=== PATIENT | female | born 1995 | race Caucasian/White ===

== ENCOUNTER 2016-12-21 20:41 | Emergency (ER) | payer BC, OTHER ==
[2016-12-21 21:17] VITALS: BP 132/68
--- NOTE | 2016-12-21 23:20 | UC ---
Du Tyler Erika, scribed for Tamara Krause MD on 12/21/16 at 2213 . Lower Extremity/Ankle HPI - HPI Summary HPI Summary: Patient is a 21-year-old female presenting to [facility] with a CC of intermittent posterior left leg pain for the past week and a half. Patient reports that on , she worked out at the gym, which she had not done in a while. She then developed the pain, described as an aching, and rated a 4/10 currently. The pain is located at the posterior knee and thigh. Patient took Advil, and is unsure if it helped the pain or not. 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 Pain is worse when sitting down, and is improved by walking around. She does note some chest pain, but states it is secondary to anxiety. Patient stopped taking oral contraceptives 1 month ago. Pt does not smoke. LNMP today. Patient reports her mother from a DVT that became a PE at age 48. - History of Current Complaint Chief Complaint: UCLowerExtremity Stated Complaint: PAIN IN LEG Time Seen by Provider: 12/21/16 21:58 Hx Obtained From: Patient, Family/Director Of Land - Boyfriend Hx Last Menstrual Period: December ?: No Onset/Duration: Gradual Onset, Lasting Weeks - 1.5 weeks, Still Present Severity Currently: Moderate Pain Intensity: 4 Pain Scale Used: 0-10 Numeric Aggravating Factor(s): Other - sitting Alleviating Factor(s): Other - ambulation Able to Bear Weight: Yes - Allergies/Home Medications Allergies/Adverse Reactions: Allergies Allergy/AdvReac Type Severity Reaction Status Date / Time No Known Allergies Allergy Verified 06/21/13 15:42 Home Medications: Home Medications Ibuprofen [Advil] 12/21/16 [History] PMH/Surg Hx/FS Hx/Imm Hx Previously Healthy: Yes Endocrine History Of: Denies: Diabetes, Thyroid Disease Cardiovascular History Of: Denies: Cardiac Disorders, Hypertension Respiratory History Of: Denies: COPD, Asthma GI/ History Of: Denies: Ulcer - Surgical History Surgical History: None - Family History Known Family History: Positive: Other - PE mother- with it - Social History Alcohol Use: Weekly Substance Use Type: None Smoking Status (MU): Never Smoked Tobacco - Immunization History Vaccination Up to Date: Yes Review of Systems Constitutional: Negative Skin: Negative Eyes: Negative ENT: Negative Respiratory: Negative Cardiovascular: Negative Gastrointestinal: Negative Genitourinary: Negative Motor: Negative Neurovascular: Negative Musculoskeletal: Other: - posterior LLE pain Neurological: Negative Psychological: Anxious - with some chest pain All Other Systems Reviewed And Are Negative: Yes Physical Exam Triage Information Reviewed: Yes Appearance: Well-Appearing, Well-Nourished, Pain Distress Vital Signs: Initial Vital Signs Temp 98.2 F 12/21/16 21:09 Pulse 108 12/21/16 21:09 Resp 16 12/21/16 21:09 BP 132/68 12/21/16 21:09 Pulse Ox 100 12/21/16 21:09 Vital Signs Reviewed: Yes Eyes: Positive: Conjunctiva Clear ENT: Positive: Normal ENT inspection Neck: Positive: Supple Respiratory: Positive: Lungs clear, Normal breath sounds, No respiratory distress Cardiovascular: Positive: No Murmur, Pulses Normal, Brisk Capillary Refill, Tachycardia - at 108 bpm on triage Musculoskeletal: Positive: Strength Intact, ROM Intact, Other: - tender left post knee and left post thigh, no cord palpable, no mass, no calf tenderness Neurological: Positive: Alert, Muscle Tone Normal Psychological Exam: Normal Skin Exam: Normal Lower Extremity Course/Dx - Differential Dx/Diagnosis Differential Diagnosis/HQI/PQRI: Contusion, Fracture (Closed), Sprain, Strain, Other - DVT, Álvarez's cyst, muscle strain Provider Diagnoses: Left posterior leg pain - Physician Notifications Discussed Patient Care With: Dr. Yoo ([facility]) at 22:11 - accepts for transfer Discharge - Discharge Plan Condition: Stable Disposition: AGAINST MEDICAL ADVICE Discharge Disposition Comment: By private car to the [facility] Forms: *Work Release Referrals: Nydia Nagy MD [Primary Care Provider] - The documentation as recorded by the Du valentino Erika accurately reflects the service I personally performed and the decisions made by , Tamara Krause MD.
== END 2016-12-21 22:24 | disposition left against medical advice (07) ==
LOC: UCEAST 20:41
DX: M79.605 Pain in left leg (principal); F41.9 Anxiety disorder, unspecified; Z83.2 Family history of diseases of the blood and blood-forming organs and certain disorders involving the immune mechanism
CPT/HCPCS: 99212; G0463

== ENCOUNTER 2016-12-21 22:37 | Emergency (ER) | payer BC ==
--- NOTE | 2016-12-22 00:41 | ED ---
Lower Extremity - HPI Summary HPI Summary: 21 female presents sent over for [facility] with complaints of left LE pain that began approximately 1 week ago. Patient was sent here to rule out DVT. Patient describes the pain to be a dull ache that is in the posterior proximal left LE and behind her left knee. She states rest makes the pain worse and walking makes it better. When she is sitting at work or in the car the pain seems to increase. Has not tried taking anything for the pain. Denies numbness/ tingling, strength and sensation loss. Denies findings of swelling, redness, bruising and fever/chills. 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 Denies SOB, difficulty breathing and chest pain. PMHx significant for anxiety. - History of Current Complaint Chief Complaint: EDExtremityLower Stated Complaint: XFER FROM EAST/POS LEFT LEG BLOOD CLOT Time Seen by Provider: 12/21/16 23:25 Hx Obtained From: Patient Hx Last Menstrual Period: December Mechanism Of Injury: Unknown Onset/Duration: Still Present Severity Initially: Mild Severity Currently: Mild Pain Intensity: 4 Pain Scale Used: 0-10 Numeric Timing: Intermittent Character Of Pain: Dull, Aching Associated Signs And Symptoms: Positive: Knee Pain Aggravating Factor(s): Other - rest Alleviating Factor(s): Other - walking Able to Bear Weight: Yes - Risk Factors DVT Risk Factors: Negative - Allergies/Home Medications Allergies/Adverse Reactions: Allergies Allergy/AdvReac Type Severity Reaction Status Date / Time No Known Allergies Allergy Verified 06/21/13 15:42 PMH/Surg Hx/FS Hx/Imm Hx Endocrine/Hematology History: Denies: Hx Diabetes, Hx Thyroid Disease Cardiovascular History: Denies: Hx Hypertension Respiratory History: Denies: Hx Asthma, Hx Chronic Obstructive Pulmonary Disease (COPD) GI History: Denies: Hx Ulcer Psychiatric History: Reports: Hx Anxiety - Surgical History Surgery Procedure, Year, and Place: none Infectious Disease History: No Infectious Disease History: Denies: Hx Hepatitis, Hx Human Immunodeficiency Virus (HIV), Traveled Outside the US in Last 30 Days - Family History Known Family History: Positive: None - Social History Alcohol Use: Weekly Alcohol Amount: 2-3 drinks weekly Substance Use Type: Reports: None Smoking Status (MU): Never Smoked Tobacco Review of Systems Constitutional: Negative Eyes: Negative ENT: Negative Cardiovascular: Negative Respiratory: Negative Gastrointestinal: Negative Genitourinary: Negative Positive: Arthralgia, Myalgia - left LE Skin: Negative Neurological: Negative Psychological: Normal All Other Systems Reviewed And Are Negative: Yes Physical Exam Triage Information Reviewed: Yes Vital Signs On Initial Exam: Initial Vitals Temp Pulse Resp BP Pulse Ox 98.8 F 83 18 147/85 100 12/21/16 22:46 12/21/16 22:46 12/21/16 22:46 12/21/16 22:46 12/21/16 22:46 BP elevated was re-checked and in a normal range. She is in pain and anxious. Vital Signs Reviewed: Yes Appearance: Positive: Well-Appearing, No Pain Distress, Well-Nourished Skin: Positive: Warm, Skin Color Reflects Adequate Perfusion - < 2 second cap refill, Dry Head/Face: Positive: Normal Head/Face Inspection Eyes: Positive: Conjunctiva Clear ENT: Positive: Normal ENT inspection, Hearing grossly normal Neck: Positive: Supple, Nontender Respiratory/Lung Sounds: Positive: Clear to Auscultation, Breath Sounds Present Cardiovascular: Positive: Normal, RRR, Pulses are Symmetrical in both Upper and Lower Extremities - 2+ pedal pulses bilateral Abdomen Description: Positive: Nontender, No Organomegaly, Soft Bowel Sounds: Positive: Present Musculoskeletal: Positive: Normal, Strength/ROM Intact - sensation and skin intact. no signs of obvious deformity, ecchymosis, erythema, edema, goode cyst, warmth, crepitus and step off. able to move entire LE normal strength and ROM, Pain @ - with palpation behind left knee and posterior proximal LE at the area of hamstring. very minimal pain on palpation. Negative: Limited @, Interruption @, Aylin Sign Left, Aylin Sign Right, Edema Left, Edema Right Neurological: Positive: Normal, Sensory/Motor Intact, Alert, Oriented to Person Place, Time, CN Intact II-III, Reflexes Intact, NV Bundle Intact Distally, Normal Gait Psychiatric: Positive: Normal, Affect/Mood Appropriate, Anxious - Macario Coma Scale Coma Scale Total: 15 Diagnostics - Vital Signs Vital Signs Temp Pulse Resp BP Pulse Ox 12/21/16 22:46 98.8 F 83 18 147/85 100 - Laboratory Lab Statement: Any lab studies that have been ordered have been reviewed, and results considered in the medical decision making process. - Radiology left knee Xray Interpretation: No Acute Changes Radiology Interpretation Completed By: ED Physician - Ultrasound No standard instances Ultrasound Interpretation: No Acute Changes - NO DVT. Negative examination Ultrasound Interpretation Completed By: Radiologist Lower Extremity Course/Dx - Course Course Of Treatment: U/S and X-ray obtained. both were unremarkable. patient was given naproxen for pain. encouraged to take at home for the next 5 days consistently while symptoms persist to see if it helps. appears to be muscular at this time. REST. follow up with PCP. - Diagnoses Differential Diagnosis/HQI/PQRI: Positive: Arthritis, Bursitis, Contusion, Dislocation, DVT, Fracture (Closed), Sprain, Strain, Other Provider Diagnoses: Lower extremity pain, posterior, Muscle strain Discharge - Discharge Plan Condition: Stable Disposition: HOME Patient Education Materials: Knee Pain (ED) Referrals: Nydia Nagy MD [Primary Care Provider] - Additional Instructions: Try taking OTC Aleve or Motrin for the next 5 days to see if symptoms subside. Try using heat or ice. Rest your leg and refrain from intense physical activity for the next 5-7 days. You could be experiencing muscle cramps from long periods of sitting, try exercising and moving your leg throughout work or long periods of sitting/laying. If symptoms worsen or persist please follow up with your primary care provider for further workup.
[2016-12-22] MEDS ORDERED: Naproxen TAB* 250 MG PO ONE (00:44)
[2016-12-22 01:14] VITALS: BP 119/69
--- NOTE | 2016-12-22 07:31 | RAD ---
HISTORY: Pain, left lower leg pain COMPARISONS: None VIEWS: 2, Frontal and lateral views of the left knee FINDINGS: BONE DENSITY: Normal. BONES: There is no displaced fracture. JOINTS: There is no arthropathy. There is no suprapatellar joint effusion or lipohemarthrosis. ALIGNMENT: There is no dislocation. SOFT TISSUES: Unremarkable. OTHER FINDINGS: None. IMPRESSION: NO ACUTE OSSEOUS INJURY. IF SYMPTOMS PERSIST, RECOMMEND REPEAT IMAGING.
--- NOTE | 2016-12-22 08:20 | RAD ---
HISTORY: Left leg pain COMPARISONS: None relevant TECHNIQUE: Multiple transverse and longitudinal ultrasound images were obtained of the left lower extremity from the level of the common femoral vein inferiorly through to the infrapopliteal veins using grayscale, color Doppler, and spectral Doppler imaging with and without compression and with augmentation. Comparison images were obtained of the contralateral common femoral vein. FINDINGS: VEINS: The venous system of the left lower extremity is compressible throughout its course, with normal flow on color Doppler imaging and normal response to augmentation on spectral Doppler imaging. SOFT TISSUES: Unremarkable. OTHER FINDINGS: None. IMPRESSION: NO LEFT LOWER EXTREMITY DEEP VEIN THROMBOSIS
== END 2016-12-22 01:13 | disposition home or self-care (01) ==
LOC: ED 22:37
DX: S86.112A Strain of other muscle(s) and tendon(s) of posterior muscle group at lower leg level, left leg, initial encounter (principal); M25.562 Pain in left knee; X58.XXXA Exposure to other specified factors, initial encounter; Y93.9 Activity, unspecified; Y92.9 Unspecified place or not applicable
CPT/HCPCS: 99282; A9270-GY

== ENCOUNTER 2017-10-20 09:54 | Emergency (ER) | payer BC ==
[2017-10-20 12:54] LABS: Hematocrit 38 % (35-47); Hemoglobin 13.2 g/dl (12.0-16.0); Mean Corpuscular HGB Conc 35 g/dl (31-36); Mean Corpuscular Hemoglobin 31 pg (27-31); Mean Corpuscular Volume 90 fL (80-97); Mean Platelet Volume 7 um3 (7.4-10.4); Platelet Count 287 10^3/ul (150-450); Red Blood Count 4.21 10^6/ul (4.0-5.4); Red Cell Distribution Width 13 % (10.5-15); White Blood Count 10.6 10^3/ul (3.5-10.8)
[2017-10-20 13:10] LABS: EGFR Non-African American 144.2 (>60)
[2017-10-20 13:15] LABS: Urine Color Yellow
[2017-10-20 13:16] LABS: Urine Appearance Clear
[2017-10-20 13:17] LABS: Urine Specific Gravity 1.015 (1.010-1.030); Urine Urobilinogen Negative (Negative)
[2017-10-20 13:18] LABS: Urine Blood 1+ (Negative); Urine Ketones 2+ (Negative); Urine Protein 1+(30 mg/dL) (Negative)
--- NOTE | 2017-10-20 15:50 | RAD ---
Indication: Vaginal spotting; approximate 9 weeks . Comparison: No relevant prior exams available on the [facility] PACS for comparison. Technique: Transabdominal obstetrical ultrasound. Report: Single intrauterine gestational sac with solitary 2.43 cm pole crown-rump length corresponding to 9 weeks 2 days gestation. No perigestational hemorrhage evident. Unremarkable 0.4 cm yolk sac. cardiac activity and movement visualized with cardiac activity measuring 163 bpm period The maternal ovaries could not be visualized. No adnexal region mass is evident. IMPRESSION: Viable-appearing single intrauterine gestation with estimated gestational age of 9 weeks 2 days based on crown-rump length. AUA MATT May 24, 2018.
[2017-10-20] MEDS ORDERED: Nitrofurantoin Macrocrystals* 100 MG CAP PO ONE (16:09)
[2017-10-20 16:55] VITALS: BP 116/81
--- NOTE | 2017-10-23 16:06 | ED ---
Solo Tyler Gabriel, scribed for Juan C Thompson MD on 10/20/17 at 1247 . - HPI Summary HPI Summary: This patient is a 22 year old F presenting to [facility] accompanied by her boyfriend with a chief complaint of vaginal bleeding since 0800 today. Patient reports ABD cramping and increased urinary frequency. Patient denies dysuria. Patient states the blood was bright red and it is brownish. She states the amount of blood would not fill a pad. Patient estimates she is 9 weeks , . Previous was born at 38 weeks and did not have fully developed lungs so it . No miscarriages. She had a US at 6weeks that showed nothing abnormal. - History of Current Complaint Chief Complaint: EDOBProblems Stated Complaint: 9 WKS /VAGINAL BLEEDING Time Seen by Provider: 10/20/17 12:23 Hx Obtained From: Patient Chief Complaint: Concern for Demise Onset/Duration: Started Hours Ago - 4, Still Present Timing: Constant Severity: Mild Current Severity: Mild Pain Intensity: 0 Location of Pain: None Character: None Associated Signs and Symptoms: Positive: Vaginal Bleeding or Discharge - bleeding, Other: - ABD cramping, increased urinary frequency, - Assessment Hx Now: No Hx Hysterectomy: No - Allergies/Home Medications Allergies/Adverse Reactions: Allergies Allergy/AdvReac Type Severity Reaction Status Date / Time No Known Allergies Allergy Verified 06/21/13 15:42 PMH/Surg Hx/FS Hx/Imm Hx Endocrine/Hematology History: Denies: Hx Diabetes, Hx Thyroid Disease Cardiovascular History: Denies: Hx Hypertension Respiratory History: Denies: Hx Asthma, Hx Chronic Obstructive Pulmonary Disease (COPD) GI History: Denies: Hx Ulcer Psychiatric History: Reports: Hx Anxiety - Surgical History Surgery Procedure, Year, and Place: none - Immunization History Date of Tetanus Vaccine: UTD Infectious Disease History: No Infectious Disease History: Denies: Hx Hepatitis, Hx Human Immunodeficiency Virus (HIV), Traveled Outside the [place] in Last 30 Days - Family History Known Family History: Negative: Seizure Disorder, Blood Disorder - Social History Occupation: Employed Full-time Alcohol Use: Weekly Alcohol Amount: states does not drink currently Substance Use Type: Reports: None Smoking Status (MU): Never Smoked Tobacco Review of Systems Negative: Fever, Chills Negative: Erythema Negative: Sore Throat Negative: Chest Pain Negative: Shortness Of Breath, Cough Positive: Abdominal Pain - ABD cramping . Negative: Vomiting, Nausea Positive: frequency, other - vaginal bleeding . Negative: dysuria, hematuria Negative: Myalgia, Edema Negative: Rash Neurological: Negative - dizziness All Other Systems Reviewed And Are Negative: Yes Physical Exam - Summary Physical Exam Summary: Constitutional: Well-developed, Well-nourished, Alert. (-) Distressed Skin: Warm, Dry HENT: Normocephalic; Atraumatic Eyes: Conjunctiva normal Neck: Musculoskeletal ROM normal neck. (-) JVD, (-) Stridor, (-) Tracheal deviation Cardio: Rhythm regular, rate normal, Heart sounds normal; Intact distal pulses; The pedal pulses are 2+ and symmetric. Radial pulses are 2+ and symmetric. (-) Murmur Pulmonary/Chest wall: Effort normal. (-) Respiratory distress, (-) Wheezes, (-) Rales Abd: Soft, (-) Tenderness, (-) Distension, (-) Guarding, (-) Rebound Musculoskeletal: (-) Edema Lymph: (-) Cervical adenopathy Neuro: Alert, Oriented x3 Psych: Mood and affect Normal - Physical Exam Triage Information Reviewed: Yes Vital Signs Reviewed: Yes Diagnostics - Vital Signs Vital Signs Temp Pulse Resp BP Pulse Ox 10/20/17 10:25 98.3 F 69 16 119/65 99 - Laboratory Result Diagrams: 10/20/17 12:44 10/20/17 12:44 Lab Statement: Any lab studies that have been ordered have been reviewed, and results considered in the medical decision making process. - Additional Comments Diagnostic Additional Comments: US reveals, per radiologist, Viable-appearing single intrauterine gestation with estimated gestational age of 9 weeks 2 days based on crown-rump length. [facility] MATT May 24, 2018. ED physician has reviewed this radiology report. Course/Dx - Course Assessment/Plan: This patient is a 22 year old F presenting to [facility] accompanied by her boyfriend with a chief complaint of vaginal bleeding since 0800 today. Patient reports ABD cramping and increased urinary frequency. Patient denies dysuria. Patient states the blood was bright red and it is brownish. She states the amount of blood would not fill a pad. Patient estimates she is 9 weeks , . Previous was born at 38 weeks and did not have fully developed lungs so it . No miscarriages. She had a US at 6weeks that showed nothing abnormal. US reveals, per radiologist, Viable-appearing single intrauterine gestation with estimated gestational age. of 9 weeks 2 days based on crown-rump length. AUA MATT May 24, 2018. ED physician has reviewed this radiology report. Test results with no significant abnormalities. In the ED course the patient was given Macrodantin. Patient will be discharged with prescription for Macrobid and follow up from PCP. The patient is agreeable with this plan. - Diagnoses Provider Diagnoses: UTI (urinary tract infection), Threatened Discharge - Discharge Plan Condition: Stable Disposition: HOME Prescriptions: Nitrofurantoin Monohyd Macro [Macrobid] 100 mg PO BID #14 cap Referrals: Nydia Nagy MD [Primary Care Provider] - The documentation as recorded by the Solo valentino Gabriel accurately reflects the service I personally performed and the decisions made by , Juan C Thompson MD.
== END 2017-10-20 16:54 | disposition home or self-care (01) ==
LOC: ED 09:54
DX: O20.0 Threatened abortion (principal); Z3A.09 9 weeks gestation of pregnancy; R10.9 Unspecified abdominal pain; N39.0 Urinary tract infection, site not specified
CPT/HCPCS: 36415; 76801; 80053; 81003; 81015; 84702; 85027; 87086; 99283; A9270-GY

== ENCOUNTER 2018-05-03 11:38 | Inpatient (IN) | payer BC ==
[2018-05-03] MEDS ORDERED: Penicillin G Potassium IV* 5,000,000 UNITS in NS 0.9% 100 ML* 100 ML IVPB ONE (13:33)
[2018-05-03] MEDS ORDERED: Misoprostol TAB* 100 MCG PO ONE (13:33)
[2018-05-03] MEDS: Acetaminophen TAB* 325 MG PO PRN ×2 (13:47→20:50)
--- NOTE | 2018-05-03 15:33 | HP ---
General Information - Reason for Visit Pt sent from the office due to preeclampsia with severely elevated blood pressures. Planning induction of labor per Dr. Silverman. 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 Pertinent Past Medical History: Non-Contributory Pertinent Past Surgical History: See Records Pertinent Family History: Non-Contributory - Antepartal Records Antepartal Records: Reviewed, Complicated by: - Preeclampsia Review of Systems Constitutional: Comfortable CV Complaint: No Respiratory: Shortness of Breath: No Gastrointestinal: Nausea - last night - has often felt throughout Genitourinary: No Dysuria, No Bleeding, No Leaking Fluid Musculoskeletal: No Complaint - occ mild cramping, No Epigastric Pain Neurological: Headache - mild Movement: Normal Exam Allergies/Adverse Reactions: Allergies No Known Allergies Allergy (Verified 05/03/18 14:00) mildly elevated BPs - Measurements Height: 5 ft Weight: 195 lb Weight in lbs: [id number] Body Mass Index (BMI): 38.0 Pre- Weight: 165 lb Weight Gained This : 30 lbs and 0 ozs - Exam Breast: Breast Exam Deferred Extremities: No Edema Heart: Normal Rhythm/Heart Sounds HEENT: No Significant Findings Reflexes: DTR 2+ - Abdominal Exam Abdomen Exam: Non-Tender - Ultrasound/Biophysical Profile Ultrasound Status: Not Done Targeted Exam Findings Cervical Exam: 1cm Effacement: 50% Station: -1 Presenting Part: Vertex Membrane Status: Intact EFM Findings - External Monitor Findings Baseline Heart Rate: 135 External Monitor Findings: Accelerations Present, No Pattern of Variable or Late Decelerations, Variability Moderate, Baseline Stable Contractions: None Assessment/Plan - Assessment @36.5wks with preeclampsia with severe BPs at home and in the office several times over the past week. Headaches off and on. BPs here have been 120 -140s/80-90s. Therefore we will proceed with induction but not start magnesium sulfate. - Obstetrical Risk Factors Obstetrical Risk Factors: GBS Positive, PreEclampsia with Severe Features - Plan Plan: Induction, Antibiotic Prophylaxis, Admit - Anticipate Vaginal Delivery
[2018-05-03 17:13] LABS: ABS Basophils 0 10^3/ul (0-0.2); ABS Eosinophils 0.1 10^3/ul (0-0.6); ABS Lymphocytes 3.3 10^3/ul (1.0-4.8); ABS Monocytes 0.7 10^3/ul (0-0.8); ABS Neutrophils 8.7 10^3/ul (1.5-7.7); ABS Nucleated RBC 0 10^3/ul; Eosinophil % 0.8 % (0-6); Hematocrit 34 % (35-47); Hemoglobin 11.3 g/dl (12.0-16.0); Lymphocyte % 25.6 % (25-47); Mean Corpuscular HGB Conc 33 g/dl (31-36); Mean Corpuscular Hemoglobin 30 pg (27-31); Mean Corpuscular Volume 90 fL (80-97); Mean Platelet Volume 8.7 um3 (7.4-10.4); Nucleated Red Blood Cells % 0; Platelet Count 226 10^3/ul (150-450); Red Blood Count 3.74 10^6/ul (4.00-5.40); Red Cell Distribution Width 15 % (10.5-15); White Blood Count 12.8 10^3/ul (3.5-10.8)
[2018-05-03] MEDS ORDERED: Oxytocin in LR* 20 UNITS/1,000 ML BAG IVPB ONE (19:34)
[2018-05-03] MEDS: Oxytocin in LR* 20 UNITS/1,000 ML BAG IVPB SCH (19:45)
[2018-05-04] MEDS ORDERED: Dinoprostone* 10 MG VAG.SUPP VAGINAL ONE (08:44)
[2018-05-04] MEDS ORDERED: Penicillin G Potassium IV* 2,500,000 UNITS in NS 0.9% 100 ML* 100 ML IVPB SCH (09:00)
--- NOTE | 2018-05-04 10:33 | PN ---
Medicine Progress Note - Date of Service Date of Service: 05/04/18 - Subjective Subjective: Patient is in bed, comfortable and has no complaints, had a headache earlier treated with tylenol and resolved, denies changes of vision, or abdominal pain. - Objective Objective: Current Medications Acetaminophen (Tylenol Tab*) 650 mg PO Q4H PRN PRN Reason: HEADACHE Last Admin: 05/03/18 20:50 Dose: 650 mg Lactated Ringer's (Lactated Ringers 1000 Ml Bag*) 1,000 mls @ 125 mls/hr IV PER RATE JESSICA Last Admin: 05/03/18 19:46 Dose: 125 mls/hr Penicillin G Potassium 2,500, (000 units/ Sodium Chloride) 100 mls @ 200 mls/ hr IVPB Q4H JESSICA Oxytocin (Pitocin In Lr*) 20 units in 1,000 mls @ 0 mls/hr IVPB .PER PARAMETERS JESSICA; Protocol Last Admin: 05/03/18 19:45 Dose: 3 mls/hr Intake & Output 05/02/18 05/03/18 05/04/18 05/05/18 06:59 06:59 06:59 06:59 Weight 195 lb Intake and Output Start: 05/03/18 11: 47 Freq: Status: Active Protocol: Created 05/03/18 11:47 System (Rec: 05/03/18 11:47 System [id number] ) General: Lungs:CTA b/l, no cva tenderness Cardiovascular: RRR Abdomen: Soft Nt, gravid Extremities: NT, reflexes +2 b/l Neuro: AAOx3 - Labs Labs: Laboratory Results - last 24 hr 05/03/18 05/03/18 16:58 16:58 WBC 12.8 H RBC 3.74 L Hgb 11.3 L Hct 34 L MCV 90 MCH 30 MCHC 33 RDW 15 Plt Count 226 MPV 8.7 Neut % (Auto) 67.9 Lymph % (Auto) 25.6 [place] % (Auto) 5.3 Eos % (Auto) 0.8 Baso % (Auto) 0.4 Absolute Neuts (auto) 8.7 H Absolute Lymphs (auto) 3.3 Absolute Monos (auto) 0.7 Absolute Eos (auto) 0.1 Absolute Basos (auto) 0 Absolute Nucleated RBC 0 Nucleated RBC % 0 Blood Type A Positive Antibody Screen Negative - Assessment Assessment: LUDIVINA ARANDA is a 22 year old Female. Patient's diagnosis is at 36 6/7 weeks with preeclampsia with maternal BP at home in office in severe range. Admitted on 05/03/18 for induction of labor, unripe cervix. She received cytotec 50MCG followed by pitocin x 24 hrs with no cervical change or contractions. Her Vitals are stable BP mostly wnl with several in 140/90 range c/w preeclampsia. Pitocin discontinued this am to avoid complications of bleeding at delivery due to prolonged pitocin use. Plan: patient and fetus are stable. Will give cervidil for cervical ripening in hopes to progress to inductiion/augmentation and achieve a vaginal delivery. Continue monitoring, will reserve BP treatment if BP are persistently systolic > 160 or diastolic >105. magnesium sulfate prophylaxis if s/sx of severe disease.
[2018-05-04] MEDS: Acetaminophen TAB* 325 MG PO PRN (17:40)
[2018-05-05] MEDS ORDERED: Oxytocin in LR* 20 UNITS/1,000 ML BAG IVPB SCH (09:00)
[2018-05-05] MEDS: Acetaminophen TAB* 325 MG PO PRN ×3 (09:50→23:12)
[2018-05-05] MEDS: Misoprostol TAB* 100 MCG PO SCH (21:17)
[2018-05-06] MEDS: Misoprostol TAB* 100 MCG PO SCH ×2 (01:21→05:17)
[2018-05-06] MEDS ORDERED: Penicillin G Potassium IV* 5,000,000 UNITS in NS 0.9% 100 ML* 100 ML IVPB ONE (12:57)
[2018-05-06] MEDS: Oxytocin in LR* 20 UNITS/1,000 ML BAG IVPB SCH (13:27)
[2018-05-06] MEDS ORDERED: OBEPIDURAL* 250 ML EPIDURAL ONE (16:40)
[2018-05-06] MEDS ORDERED: fentaNYL* 50 MCG/ML 2 ML VIAL (100 MCG VIAL) ONE (16:48)
[2018-05-06] MEDS ORDERED: Phenylephrine IV* 40 MCG/ML 10 ML SYRINGE IV PUSH PRN ×2 (17:25)
[2018-05-06] MEDS ORDERED: Famotidine TAB* 20 MG PO PRN (17:25)
[2018-05-06] MEDS ORDERED: Sodium Citrate/Citric Acid* 15 ML UDC PO PRN (17:25)
[2018-05-06] MEDS ORDERED: OBEPIDURAL* 250 ML EPIDURAL SCH (18:00)
[2018-05-06] MEDS ORDERED: Penicillin G Potassium IV* 2,500,000 UNITS in NS 0.9% 100 ML* 100 ML IVPB SCH (18:00)
[2018-05-06 18:10] LABS: Hematocrit 32 % (35-47); Hemoglobin 10.8 g/dl (12.0-16.0); Mean Corpuscular HGB Conc 34 g/dl (31-36); Mean Corpuscular Hemoglobin 31 pg (27-31); Mean Corpuscular Volume 90 fL (80-97); Mean Platelet Volume 8.6 um3 (7.4-10.4); Platelet Count 197 10^3/ul (150-450); Red Blood Count 3.53 10^6/ul (4.00-5.40); Red Cell Distribution Width 15 % (10.5-15); White Blood Count 9.4 10^3/ul (3.5-10.8)
[2018-05-06] MEDS ORDERED: Witch Hazel PAD* JAR TOPICAL PRN (18:27)
[2018-05-06] MEDS ORDERED: Dibucaine 1% 28.35 GM TUBE PR PRN (18:27)
[2018-05-06 18:29] LABS: EGFR Non-African American 104.6 (>60)
[2018-05-06] MEDS ORDERED: Oxytocin in LR* 20 UNITS/1,000 ML BAG IVPB SCH (19:00)
[2018-05-06] MEDS: Acetaminophen TAB* 325 MG PO PRN (19:45)
--- NOTE | 2018-05-06 20:15 | PROCNOTE ---
[facility] OB: Delivery Note - Delivery A Date of : 05/06/18 Time of : 18:14 [place] Sex: Male Weight at : 5 lb 10 oz Score 1 Minute: 8 Score 5 Minutes: 9 Gestational Age in Weeks and Days at Delivery: 37 Weeks and 1 Days Delivery Method: Spontaneous Vaginal Labor: Induced - for pre-eclampsia (mild) Did Patient attempt ?: N/A, No Previous Amniotic Fluid: Clear Estimated Blood Loss: 250 Anesthesia/Analgesia: CEI for Labor Delivered By: Ba You - Nursery Level of Nursery: Regular/Bedside - Perineum Perineal Injury: None/Intact Perineal Repair: None - Events Delivery Events of Note: Pitocin During Labor, Pitocin Only After Delivery, Full Course of Antibiotics - for GBS - Additional Delivery Notes Additional Delivery Notes: Pt admitted about 72 hrs before delivery for induction with mild pre-eclampsia. BPs remained in mild HTN range. No severe BPs, and labs were normal. Pt required many doses of misoprostol, cervidil, and pitocin with slow response. Pt reached 3-4cm/80% this AM. AROM performed and pitocin restarted. Pt received an epidural which worked well. A few hours later, she was fully dilated. She literally pushed for less than one minute to deliver the . Single nuchal cord present and reduced after delivery. Infant vigorous immediately. Placenta intact, appeared normal. Bleeding minimal.
[2018-05-06] MEDS ORDERED: Simethicone TAB* 80 MG TAB.CHEW PO SCH (21:00)
[2018-05-06] MEDS ORDERED: ceFAZolin 1 GM in Dextrose (*) 1 GM/50 ML BAG IVPB ONE (23:11)
--- NOTE | 2018-05-06 23:14 | PN ---
Progress Note - Progress Note Date of Service: 05/06/18 Note: Called by RN to see pt due to persistent gushes of blood since delivery. She has had excellent UOP. On exam, as expected, a large amount of organized clot found in the uterus. This was manually swept out, productive of about 600cc of clot. Pt tolerated this extremely well. Uterus was firm before and after. Will continue to watch closely. Ancef IV single dose ordered.
[2018-05-07] MEDS: Acetaminophen TAB* 325 MG PO PRN ×2 (00:23→16:59)
[2018-05-07] MEDS: Docusate CAP* 100 MG PO SCH ×3 (00:23→21:20)
[2018-05-07 07:03] LABS: ABS Basophils 0.1 10^3/ul (0-0.2); ABS Eosinophils 0.1 10^3/ul (0-0.6); ABS Monocytes 0.8 10^3/ul (0-0.8); ABS Neutrophils 7.5 10^3/ul (1.5-7.7); ABS Nucleated RBC 0 10^3/ul; Eosinophil % 0.7 % (0-6); Hematocrit 26 % (35-47); Lymphocyte % 32.3 % (25-47); Mean Corpuscular HGB Conc 34 g/dl (31-36); Mean Corpuscular Hemoglobin 31 pg (27-31); Mean Corpuscular Volume 90 fL (80-97); Mean Platelet Volume 8.9 um3 (7.4-10.4); Nucleated Red Blood Cells % 0.2; Platelet Count 193 10^3/ul (150-450); Red Blood Count 2.88 10^6/ul (4.00-5.40); Red Cell Distribution Width 15 % (10.5-15); White Blood Count 12.4 10^3/ul (3.5-10.8)
[2018-05-07] MEDS: Ferrous Gluconate TAB* 324 MG TAB PO SCH ×2 (09:05→21:20)
[2018-05-08] MEDS: Acetaminophen TAB* 325 MG PO PRN (00:57)
[2018-05-08 07:47] VITALS: BP 142/94
[2018-05-08] MEDS: Docusate CAP* 100 MG PO SCH (08:22)
[2018-05-08] MEDS: Ferrous Gluconate TAB* 324 MG TAB PO SCH (08:22)
== END 2018-05-08 16:36 | disposition home or self-care (01) | DRG 560 ==
LOC: MCHOBOUT 11:38 → MCHOB 12:06
PROVIDERS: ADMIT Obstetrics & Gynecology; ATTEND Obstetrics & Gynecology
PROC: 10E0XZZ Delivery of Products of Conception, External Approach (ICD-10-PCS; principal; 2018-05-06)
PROC: 3E033VJ Introduction of Other Hormone into Peripheral Vein, Percutaneous Approach (ICD-10-PCS; 2018-05-06)
PROC: 10907ZC Drainage of Amniotic Fluid, Therapeutic from Products of Conception, Via Natural or Artificial Opening (ICD-10-PCS; 2018-05-06)
DX: O14.14 Severe pre-eclampsia complicating childbirth (principal); O99.824 Streptococcus B carrier state complicating childbirth; O69.81X0 Labor and delivery complicated by cord around neck, without compression, not applicable or unspecified; O90.81 Anemia of the puerperium; D64.9 Anemia, unspecified; Z3A.37 37 weeks gestation of pregnancy; Z37.0 Single live birth
CPT/HCPCS: 36415; 80053; 84112; 85025; 85027; 86850; 86900; 86901; A9270-GY; J0690; J2540; J3010; S0191

== ENCOUNTER 2018-05-14 10:35 | Emergency (ER) | payer BC ==
--- NOTE | 2018-05-14 13:25 | ED ---
GI/ HPI - HPI Summary HPI Summary: Pt here w/ hemorrhoid x 5 days. This presented 3 days s/p vaginal delivery of her son. and delivery were uneventful (ie. no tearing). Pt reports her hemorrhoid is tender to touch, worse w/ wiping. Intermittent bleeding w/ wiping and some scant bleeding into pad. Has been using witch yolanda and prep H. No Sitz bath, NSAID's, stool softeners. Had a formed stool this morning that she reports was not painful until she had to wipe. No fatigue, lightheadedness, syncope, dizziness, CP, SOB. Has had anemia and is supposed to be taking Fe - hasn't started yet. Saw delivery recruiter today who per pt tried to "break up the clots" but was not successful so sent her here. No other health issues to report. - History of Current Complaint Chief Complaint: EDRectalPain Time Seen by Provider: 05/14/18 11:10 Stated Complaint: POSS HEMORRHOIDS Hx Obtained From: Patient, Family/Voice Over Artist - male partner Hx Last Menstrual Period: December Pain Intensity: 7 - Allergy/Home Medications Allergies/Adverse Reactions: Allergies Allergy/AdvReac Type Severity Reaction Status Date / Time No Known Allergies Allergy Verified 05/14/18 11:01 Home Medications: Home Medications Vitamin TAB* 1 tab PO DAILY 05/14/18 [History Confirmed 05/14/18] PMH/Surg Hx/FS Hx/Imm Hx Previously Healthy: Yes Endocrine/Hematology History: Reports: Hx Anemia - Fe def w/ Denies: Hx Anticoagulant Therapy, Hx Blood Disorders, Hx Diabetes, Hx Thyroid Disease Cardiovascular History: Denies: Hx Hypertension Respiratory History: Denies: Hx Asthma, Hx Chronic Obstructive Pulmonary Disease (COPD) GI History: Denies: Hx Ulcer Psychiatric History: Reports: Hx Anxiety - Surgical History Surgery Procedure, Year, and Place: none - Immunization History Date of Tetanus Vaccine: UTD Infectious Disease History: No Infectious Disease History: Denies: Hx Hepatitis, Hx Human Immunodeficiency Virus (HIV), Traveled Outside the [place] in Last 30 Days - Family History Known Family History: Positive: None Negative: Seizure Disorder, Blood Disorder - Social History Occupation: Unemployed - on maternity leave Lives: With Family Alcohol Use: None Alcohol Amount: states does not drink currently Hx Substance Use: No Substance Use Type: Reports: None Hx Tobacco Use: No Smoking Status (MU): Never Smoked Tobacco Have You Smoked in the Last Year: No Review of Systems Constitutional: Negative Negative: Fever, Chills, Fatigue Cardiovascular: Negative Respiratory: Negative Gastrointestinal: Other - hemorrhoid Genitourinary: Other - vaginal bleeding since delivery Skin: Negative Neurological: Negative Psychological: Normal - concerned All Other Systems Reviewed And Are Negative: Yes Physical Exam Triage Information Reviewed: Yes Vital Signs On Initial Exam: Initial Vitals Temp Pulse Resp BP Pulse Ox 97.8 F 91 18 132/86 100 05/14/18 10:46 05/14/18 10:46 05/14/18 10:46 05/14/18 10:46 05/14/18 10:46 Vital Signs Reviewed: Yes Appearance: Positive: Well-Appearing, No Pain Distress, Well-Nourished Skin: Positive: Warm, Skin Color Reflects Adequate Perfusion, Dry Head/Face: Positive: Normal Head/Face Inspection Eyes: Positive: EOMI, Conjunctiva Clear ENT: Positive: Hearing grossly normal, Pharynx normal - mucosa moist Respiratory/Lung Sounds: Positive: Breath Sounds Present Cardiovascular: Positive: Normal Abdomen Description: Positive: Nontender, Soft, Other: - external hemorrhoid - flesh colored w/ scant scabbing along 1 side - pt allows for some degree of reduction but painful w/ more advanced attempt - no bleeding Bowel Sounds: Positive: Present Pelvic Exam: Positive: External Exam Normal - scant blood in vulvar region Musculoskeletal: Positive: Normal, Strength/ROM Intact Neurological: Positive: Normal, Sensory/Motor Intact, Alert, Oriented to Person Place, Time, CN Intact II-III Psychiatric: Positive: Normal Diagnostics - Vital Signs Vital Signs Temp Pulse Resp BP Pulse Ox 05/14/18 10:46 97.8 F 91 18 132/86 100 - Laboratory Lab Statement: Any lab studies that have been ordered have been reviewed, and results considered in the medical decision making process. GIGU Course/Dx - Course Course Of Treatment: Discussed case w/ Dr. Wu - okay to proceed w/ conservative approach as pt has not yet tried Sitz bath, NSAID's and stool softeners. She is also outside the effective window of thrombectomy (body will reabsorp on its own). Education provided and she will f/u w/ delivery recruiter for recheck and return to ED if danger s/sx present. - Diagnoses Provider Diagnoses: hemorrhoids Discharge - Sign-Out/Discharge Documenting (check all that apply): Patient Departure - Discharge Plan Condition: Stable Disposition: HOME Prescriptions: Ibuprofen TAB* [Motrin TAB* 600 MG] 600 mg PO Q6H PRN #20 tab PRN Reason: Pain Patient Education Materials: Thrombosed Hemorrhoid (ED) Referrals: Nydia Nagy MD [Primary Care Provider] - Additional Instructions: Follow instructions on discharge handout Pain and anti-inflammatory medication has been sent to the pharmacy for you - take IBUPROFEN 600MG not naproxen You may continue witch yolanda and preparation H - add Sitz Bath and a stool softener to your daily regimen - drink plenty of water Follow-up with PCP next week for recheck after implementing these recommendations If worse as described in handout, return to ED - Billing Disposition and Condition Condition: STABLE Disposition: Home
[2018-05-14 14:03] VITALS: BP 135/89
[2018-05-14] MEDS ORDERED: Ibuprofen TAB* 600 MG PO ONE (14:12)
== END 2018-05-14 14:02 | disposition home or self-care (01) ==
LOC: ED 10:35
DX: O87.2 Hemorrhoids in the puerperium (principal)
CPT/HCPCS: 99282; A9270-GY

== ENCOUNTER 2018-12-20 13:06 | Emergency (ER) | payer BC ==
[2018-12-20 15:47] VITALS: BP 123/73
== END 2018-12-20 15:45 | disposition left against medical advice (07) ==
LOC: ED 13:06
DX: R00.0 Tachycardia, unspecified (principal); Z53.21 Procedure and treatment not carried out due to patient leaving prior to being seen by health care provider

== ENCOUNTER 2019-01-20 08:16 | Day surgery (SDC) | payer BC ==
[~2019-01-20 08:16] MED LIST: Buffered Lidocaine 1% SYRIN* 1 ML/SYRINGE INTRADERM ONE; Lactated Ringers 1000 ML Bag* 1,000 ML IV SCH; Sodium Citrate/Citric Acid* 15 ML UDC PO ONE
[2019-01-20] MEDS ORDERED: Sodium Citrate/Citric Acid* 15 ML UDC ONE (08:46)
[2019-01-20] MEDS ORDERED: Buffered Lidocaine 1% SYRIN* 1 ML/SYRINGE INTRADERM ONE (08:46)
[2019-01-20] MEDS ORDERED: ceFAZolin 2 GM in NS PREMIX(*) 2 GM/100 ML BAG IVPB ONE (08:46)
[2019-01-20] MEDS ORDERED: fentaNYL* 50 MCG/ML 2 ML VIAL (100 MCG VIAL) IV PRN (09:42)
[2019-01-20] MEDS ORDERED: Ondansetron INJ* 2 MG/ML VIAL IV PRN (09:42)
[2019-01-20] MEDS ORDERED: Naloxone* 0.4 MG/ML 1 ML VIAL IV PRN (09:42)
[2019-01-20] MEDS ORDERED: Bupivacaine 0.25% W/EPI* 10 ML SDV ONE (09:44)
[2019-01-20] MEDS ORDERED: fentaNYL* 50 MCG/ML 2 ML VIAL (100 MCG VIAL) ONE ×2 (10:04→11:30)
[2019-01-20] MEDS ORDERED: Lidocaine 2% PF * 5 ML VIAL ONE (10:05)
[2019-01-20] MEDS ORDERED: Propofol* 10 MG/ML 20 ML BTL ONE (10:05)
[2019-01-20] MEDS ORDERED: Rocuronium* 10 MG/ML VIAL ONE (10:07)
[2019-01-20] MEDS ORDERED: Sugammadex * 200 MG/2 ML VIAL IV PUSH ONE (10:55)
[2019-01-20] MEDS ORDERED: Ondansetron INJ* 2 MG/ML VIAL ONE (11:30)
[2019-01-20] MEDS ORDERED: oxyCODONE/Acetamin 5/325 MG* TAB ONE (11:49)
[2019-01-20] MEDS ORDERED: oxyCODONE/Acetamin 5/325 MG* TAB PO ONE (11:49)
[2019-01-20 12:34] VITALS: BP 120/79
--- NOTE | 2019-01-20 20:49 | OP ---
CC: Dr. Nagy * DATE OF OPERATION: 01/20/19 - [facility] DATE OF : 89 SURGEON: Davi Hunt MD HIDE HANDLER: Tayler Liu NP ANESTHESIOLOGIST: Dr. Mark. ANESTHESIA: General anesthetic, local infiltration. PRE-OP DIAGNOSIS: Symptomatic cholelithiasis. POST-OP DIAGNOSIS: Symptomatic cholelithiasis. OPERATIVE PROCEDURE: Laparoscopic cholecystectomy. DESCRIPTION OF PROCEDURE: The patient was supine on the operating room table. After adequate general anesthetic, compression stockings, Nely-Hugger warmer, and intravenous antibiotics, the abdomen was prepped with antiseptic, draped in a sterile fashion. Local infiltrative anesthesia was administered. Right upper quadrant Visiport cannula was placed under direct vision. Insufflation was carried out with carbon dioxide. Additional cannulae 5 mm supraumbilical, 12 mm subxiphoid, and 5 mm right anterior axillary line were placed through small stab wounds under direct vision. There was no evidence of injury. The gallbladder was tented upward. Areolar tissue was taken down off the cystic duct and cystic artery, which were readily identified, clipped, and divided. Common duct was visualized and well out of harm's way. Gallbladder was taken off the liver bed. There was spillage of a couple of large stones, which were readily retrieved. The gallbladder was placed in a retrieval bag and the operative field was well irrigated with warm saline solution. Free fluid was suctioned out. There was no residual stone material. The pneumoperitoneum was allowed to escape. The skin closed with 5-0 Vicryl followed by Steri-Strips. She tolerated the procedure well, was awakened, and brought to recovery in good condition. No complications. No drains. Pathologic specimen is gallbladder. Sponge and instrument counts correct. Estimated blood loss less than 20 mL. [id number] #: [id number] [facility]
== END 2019-01-20 13:12 | disposition home or self-care (01) ==
LOC: OR 08:16
PROVIDERS: ATTEND Surgery
DX: K80.10 Calculus of gallbladder with chronic cholecystitis without obstruction (principal); F41.9 Anxiety disorder, unspecified
CPT/HCPCS: 81025; 88304; A9270-GY; J0690; J2405; J2704; J3010